=== PATIENT | male | born 1975 | race Hispanic/Latino ===

== ENCOUNTER 2017-05-04 14:55 | Emergency (ER) | payer BC, SELFPAY ==
[2017-05-04 14:56] VITALS: BP 148/96; PULSE 76; RESP 16; TEMP 36.7; O2SAT 96; BMI 27.1
--- NOTE | 2017-05-04 15:11 | CT_ITS ---
STUDY: CT BRAIN WITHOUT CONTRAST REASON FOR EXAM: Male, 41 years old. Headache for 3 weeks. RADIATION DOSAGE (If Supplied By Facility): CTDIvol = ( 44.99 ) mGy, DLP = ( 812.98 ) mGycm TECHNIQUE: Transaxial CT imaging of the brain was performed without administration of intravenous contrast material. Individualized dose optimization techniques were used for this CT. COMPARISON: None. FINDINGS: Normal soft tissue structures. Normal calvarium. Normal size ventricles and extra-axial spaces for the patient's age. Normal white matter tracts of the cerebral hemispheres. Normal basal ganglia and thalami. Normal brainstem. Normal cerebellum. There is no intracranial hemorrhage. There are no findings of an acute ischemic infarction. Normal visualized paranasal sinuses. CT/Brain/Head without Contrast IMPRESSION: Normal unenhanced CT scan of the brain. Electronically Signed: Sachin Salgado DO at 16:20 EST Tel [phone], Service support ,
--- NOTE | 2017-05-04 15:46 | ED.VISSUMM ---
- ER Visit Summary Date of Service: 05/04/17 Chief Complaint: Headache History of Present Illness: The patient is a 41 M with no primary care physician. He reports he has a headache that began 3 weeks ago. It is upper neck and occipital in location. Is gradually gotten worse. It is a continuous pressure. It is 9 out of 10 at worst 9-10 currently. Is worsened by noise and light. It is relieved by nothing. Patient denies any recent trauma. No fever, chills, numbness, weakness, or change in his vision. Physical Examination: Vitals: Stable. Afebrile. Neck: Supple with no meningismus. Neuro: Cranial nerves II through XII are intact, 5 out of 5 strength throughout, normal sensation to light touch throughout. Normal gait. General: A&O x 3. NAD. Cardiovascular exam: Regular rate and rhythm, no murmur, rub or gallop. Respiratory exam: Clear to auscultation bilaterally. No wheezes or stridor. Abdominal exam: Soft, nontender, nondistended, normal bowel sounds. No peritoneal signs. Extremity: No clubbing, cyanosis, or edema. Test Results: CBC is normal. Chem-7 is remarkable for a chloride of 108 and creatinine is 0.62. CT brain shows no acute disease. Emergency Department Course and Treatment: Patient had an IV placed. He was given a liter of normal saline, Compazine, Benadryl, and Toradol IV. He reports his headache is down to a 2 out of 10 severity. Treatment Plan: Patient will be discharged naproxen. Instructed to follow-up the [facility] as needed. Return to the emergency department for any worsening symptoms. Disposition: To home in improved and stable condition. Impression: 1. Cephalgia. This note was generated with [employer] dictation software. It may contain incorrect words, spelling, and punctuation that were not noted in review of the chart prior to signing ED Disposition - Plan for ED Patient: Chief Complaint: Headache Instructions: ED Cephalgia Unspecified Prescriptions: Naproxen [Naprosyn] 500 mg PO BID PRN #20 tablet Referrals: Kenya [facility] [NON-STAFF] - As Needed
[2017-05-04] MEDS: Ketorolac 30 MG/ML Syringe IV (16:00)
[2017-05-04] MEDS: proCHLORPERazine 10 MG/2 ML Vial IV (16:00)
[2017-05-04] MEDS: DiphenhydrAMINE 50 MG/ML Syringe IV (16:00)
[2017-05-04] MEDS: 0.9% Normal Saline 1,000 ML 999 ML IV (16:00)
[2017-05-04 16:21] LABS: Absolute Lymphocyte Count 2.44 X10^3/ul (0.83-4.51); Absolute Neutrophil Count 6.3 X10^3/uL (2.0-7.7); Basophil# 0.01 X10^3/uL; Basophil% 0.1 % (0-1); Eosinophil# 0.02 X10^3/uL; Eosinophils% 0.2 % (0-5); Hematocrit 42.4 % (40-54); Lymphocyte # 2.44 X10^3/ul (4.0); Lymphocyte % 25.9 % (19-41); Mean Corpuscular Hgb 26.4 pg (27.0-32.0); Mean Platelet Vol. 9.7 fl (6.2-12.0); Monocyte# 0.69 X10^3/uL; Monocyte% 7.3 % (0-10); Neutrophil # 6.25 X10^3/uL (2.7-7.7); Neutrophil % 66.4 % (47-70); Platelet Count 220 K/mm3 (150-450); RBC Distribution Width CV 14.8 % (11.6-14.6); RBC Distribution Width SD 43.3 fl (35.1-43.9); White Blood Count 9.4 K/mm3 (4.4-11.0)
[2017-05-04 16:26] LABS: Anion Gap 7 (5-15); BUN 11 mg/dL (7-18); BUN/Creat Ratio 17.8 RATIO (10-20); Calcium,Total 8.6 mg/dL (8.5-10.1); Chloride 108 mmol/L (98-107); Creatinine, Serum 0.62 mg/dL (0.70-1.30); EST Glomerular Filtration Rate 152 mL/min (>60); Est Glom Filt Rate - Afr Amer 183 mL/min (>60); Glucose 87 mg/dL (74-106); Potassium 3.5 mmol/L (3.5-5.1); Sodium Level 142 mmol/L (136-145)
[2017-05-04 16:28] LABS: POSITIVE COUNT NO; POSITIVE DIFFERENTIAL NO; POSITIVE MORPHOLOGY NO
[2017-05-04 16:57] VITALS: BP 125/74; PULSE 62; RESP 15; O2SAT 98
== END 2017-05-04 16:58 | disposition home or self-care (01) ==
PROVIDERS: Emergency Provider Emergency Medicine
DX: R51 Headache (principal)
CPT/HCPCS: 70450; 80048; 85025; 96361; 96374; 96375; 99283; J7030; A4216

== ENCOUNTER 2018-09-30 20:07 | Emergency (ER) | payer BC, SELFPAY ==
[2018-09-30 20:08] VITALS: BP 121/84; PULSE 83; RESP 15; TEMP 36.7; BMI 26.4
--- NOTE | 2018-09-30 20:35 | CT_ITS ---
STUDY: CT ABDOMEN AND PELVIS WITH CONTRAST REASON FOR EXAM: Male, 43 years old. Epigastric pain history of melanoma RADIATION DOSAGE (If Supplied By Facility): CTDIvol = ( 14.92 ) mGy, DLP = ( 878.66 ) mGycm TECHNIQUE: Transaxial images were obtained from the dome of the diaphragm to the symphysis pubis without oral contrast. 100ML IV Isovue 300 was administered. Sagittal and coronal images were reconstructed. Individualized dose optimization techniques were used for this CT. COMPARISON: None. FINDINGS: The visualized lung bases are unremarkable. The visualized portions of the heart are within normal limits. Normal liver. The gallbladder is contracted. Normal spleen. Normal pancreas. Normal bilateral adrenal glands. There is mild distention of the right renal pelvis and ureter without visualized stone there is tortuosity of the right ureter and a distended appearance of the bladder. There is a similar appearance of the left kidney with mild distention of the left renal pelvis. There is distention of the bladder. Normal visualized stomach. There is a fluid filled appearance of most of the colon some with air-fluid levels. There is a tortuous appearance of the colon. There are redundant loops [id number] amount of stool a few diverticula, no evidence of diverticulitis. The appendix is visualized and appears normal. Normal abdominal aorta. Normal inferior vena cava. There are few nonspecific subcentimeter mesenteric lymph nodes. Bladder is distended. Normal visualized prostate gland. Normal abdominal wall. There are diffuse degenerative changes of the visualized lumbar spine. CT/Abdomen/Pelvis W IV Cont ONLY IMPRESSION: Contracted gallbladder. Mild bilateral pelviectasis over distended bladder recommend voiding or catheterization. [id number] constipation diverticulosis no evidence of diverticulitis. Electronically Signed: Maria G Mg MD at 22:12 EDT Tel , Service support ,
[2018-09-30] MEDS: Mag Hydrox/Al Hydrox/Simeth 30 ML UDC PO (21:03)
[2018-09-30] MEDS: 0.9% Normal Saline 1,000 ML 1000 ML IV (21:03)
--- NOTE | 2018-09-30 21:10 | ED.VISSUMM ---
- ER Visit Summary Date of Service: 09/30/18 Chief Complaint: Abdominal pain History of Present Illness: The patient is a [address] Chacon. Patient reports his abdominal pain that began approximately 1 week ago. He describes the pain as a continuous aching, burning that is 8 out of 10 at worst and 7-10 currently. Is worsened by food and laying down. Is relieved by cold water and walking. He denies any associated nausea, vomiting, diarrhea, melena, or hematochezia. No dysuria or frequency. Patient reports that he has been on Prilosec. He saw the physician's anesthetic assistant for Dr. Chacon last week and was changed to Protonix with no relief. Review of systems is otherwise negative. Physical Examination: Vitals: Stable. Afebrile. General: Well-nourished and well-developed. Head: Normocephalic atraumatic. Neck: Supple, no lymphadenopathy. No JVD. Nontender. Cardiovascular: Regular rate and rhythm. No murmurs. Respiratory: No respiratory distress. Clear to auscultation bilaterally. Abdominal: Soft, mild tenderness palpation left upper and left lower quadrants, nondistended, normal bowel sounds. No guarding, rebound, or peritoneal signs. Back: Nontender. Extremities: Nontender, no edema. Skin: Normal color, no rash. Neurologic: Alert and oriented ?3. Cranial nerves II through XII are intact. Normal strength and sensation. Psych: Normal affect. Test Results: CBC shows monocytes of 11. Chem-7 shows a glucose of 146. LFTs show an AST of 13. Lipase is normal. Clinical Impression(s) from Imaging Studies Abdomen/Pelvis CT 09/30/18 20:35 IMPRESSION: Contracted gallbladder. Mild bilateral pelviectasis over distended bladder recommend voiding or catheterization. [id number] constipation diverticulosis no evidence of diverticulitis. Electronically Signed: Maria G Mg MD at 22:12 EDT Tel , Service support , Emergency Department Course and Treatment: Patient was treated with a GI cocktail. He is resting more comfortably. Treatment Plan: Patient will be discharged with prescription for Zantac. Instructed to follow-up with Dr. Alvarez in 1 week for another exam. He is also given the name of Dr. Love. Return to the emergency department for any worsening symptoms. Disposition: To home in improved and stable condition. Impression: 1. Abdominal pain, acute. This note was generated with [employer] dictation software. It may contain incorrect words, spelling, and punctuation that were not noted in review of the chart prior to signing ED Disposition - Plan for ED Patient: Instructions: GASTRITIS vs. ULCER Prescriptions: Ranitidine [Zantac] 300 mg PO DAILY #30 tab Prescription Printed Referrals: Michelle Alvarez MD [STAFF PHYSICIAN] - 1 Week William Love MD [NON-STAFF] -
[2018-09-30 21:20] LABS: Absolute Lymphocyte Count 2.17 X10^3/uL (0.83-4.51); Basophil# 0.03 X10^3/uL; Basophil% 0.3 % (0-1); Eosinophil# 0.02 X10^3/uL; Eosinophils% 0.2 % (0-5); Hematocrit 43.6 % (40-54); Hemoglobin 14.5 g/dL (13.0-16.5); Lymphocyte # 2.17 X10^3/ul (4.0); Lymphocyte % 23.6 % (19-41); Mean Corp Hgb Conc 33.3 g/dL (32-36); Mean Corpuscular Hgb 26.6 pg (27.0-32.0); Mean Corpuscular Volume 79.9 fL (80-94); Mean Platelet Vol. 9.6 fl (6.2-12.0); Monocyte% 10.9 % (0-10); NRBC Flagged by Analyzer 0 % (0-5); Neutrophil # 5.96 X10^3/uL (2.7-7.7); Neutrophil % 64.8 % (47-70); Platelet Count 284 K/mm3 (150-450); RBC Distribution Width CV 13.9 % (11.6-14.6); RBC Distribution Width SD 39.7 fl (35.1-43.9); Red Blood Count 5.46 M/mm3 (4.6-6.2); White Blood Count 9.2 K/mm3 (4.4-11.0)
[2018-09-30 21:37] LABS: ALB/GLOB Ratio 1.1 RATIO (0.9-2.4); AST(SGOT) 13 U/L (15-37); Alanine Aminotransfer ALT/SGPT 23 U/L (16-61); Albumin, Serum 3.9 g/dL (3.2-5.0); Alkaline Phosphatase 106 U/L (45-117); Anion Gap 5 (5-15); BUN 11 mg/dL (7-18); BUN/Creat Ratio 12.4 RATIO (10-20); Calcium,Total 8.9 mg/dL (8.5-10.1); Chloride 107 mmol/L (98-107); Creatinine, Serum 0.89 mg/dL (0.70-1.30); EST Glomerular Filtration Rate 99 mL/min (>60); Est Glom Filt Rate - Afr Amer 120 mL/min (>60); Estimated Creatinine Clearance 120.95 ml/min; Globulin 3.6 g/dL (2.2-4.2); Glucose 146 mg/dL (74-106); Lipase 174 U/L (73-393); Potassium 3.3 mmol/L (3.5-5.1); Protein, Total 7.5 g/dL (6.4-8.2); Sodium Level 139 mmol/L (136-145)
[2018-09-30 22:37] VITALS: BP 119/85; PULSE 70; RESP 16; O2SAT 97
== END 2018-09-30 22:38 | disposition home or self-care (01) ==
PROVIDERS: Emergency Provider Emergency Medicine; Family Provider Family Medicine; PCP Family Medicine
DX: R10.32 Left lower quadrant pain (principal); R10.12 Left upper quadrant pain
CPT/HCPCS: 74177; 80053; 83690; 85025; 96360; 99283; J7030; Q9967; A4216